=== PATIENT | female | born 1960 | race Caucasian/White ===

== ENCOUNTER 2016-02-16 17:11 | Emergency (ER) | payer MEDICARE, MEDICAID ==
[2016-02-16] MEDS ORDERED: DIPHENHYDRAMINE 50 MG/ML VIAL ONE (19:33)
[2016-02-16] MEDS ORDERED: ONDANSETRON 4 MG VIAL ONE (19:33)
[2016-02-16] MEDS ORDERED: LORAZEPAM 2 MG/ML VIAL ONE (19:34)
[2016-02-16] MEDS ORDERED: FAMOTIDINE 20 MG INJ ONE (19:34)
[2016-02-16] MEDS ORDERED: SODIUM CHLORIDE 0.9% 1,000 ML ONE (19:34)
== END 2016-02-16 22:40 | disposition home or self-care (01) ==
LOC: ER 17:11
CPT/HCPCS: 74022 ×2; 96361 ×2; 96374 ×2; 96375 ×2; 99284; J2405

== ENCOUNTER 2016-02-17 22:08 | Emergency (ER) | payer MEDICARE, MEDICAID ==
[2016-02-18] MEDS ORDERED: ALU/MAG/SIM 30 ML UDC ONE (00:42)
[2016-02-18] MEDS ORDERED: LIDOCAINE 2% VISC 15 ML UDC ONE (00:42)
[2016-02-18] MEDS ORDERED: CLINDAMYCIN 300 MG CAP PO ONE (01:05)
[2016-02-18] MEDS ORDERED: PANTOPRAZOLE 40 MG TAB PO ONE (01:59)
== END 2016-02-18 02:51 | disposition home or self-care (01) ==
LOC: ER 22:08
CPT/HCPCS: 36415; 80053; 81001; 83690; 84703; 85025

== ENCOUNTER 2016-03-12 12:40 | Emergency (ER) | payer MEDICARE, MEDICAID ==
[2016-03-12] MEDS ORDERED: OPTIRAY 350 100 ML VIAL HMH IV ONE (12:41)
[2016-03-12] MEDS ORDERED: LIDOCAINE 2% VISC 15 ML UDC ONE (13:58)
[2016-03-12] MEDS ORDERED: ALU/MAG/SIM 30 ML UDC ONE (13:58)
[2016-03-12] MEDS ORDERED: ONDANSETRON 4 MG VIAL ONE (15:44)
[2016-03-12] MEDS ORDERED: SODIUM CHLORIDE 0.9% 1,000 ML ONE (15:44)
[2016-03-12] MEDS ORDERED: MORPHINE 4 MG/ML SYR ONE (15:44)
[2016-03-12] MEDS ORDERED: FAMOTIDINE 20 MG INJ ONE (15:58)
[2016-03-12] MEDS ORDERED: SODIUM CHLORIDE 0.9% 100 ML IV ONE (16:09)
[2016-03-12] MEDS ORDERED: LORAZEPAM 2 MG/ML VIAL ONE (17:16)
== END 2016-03-12 19:48 | disposition home or self-care (01) ==
LOC: ER 12:40
DX: R10.84 Generalized abdominal pain (principal); R11.2 Nausea with vomiting, unspecified; R06.00 Dyspnea, unspecified; J01.00 Acute maxillary sinusitis, unspecified; J44.9 Chronic obstructive pulmonary disease, unspecified; Z87.891 Personal history of nicotine dependence
CPT/HCPCS: 36415; 36600; 71020; 74177; 80053; 81001; 82553; 82803; 83690; 84484; 85025; 87088; 96361; 96374; 96375; 99284; J2270; J2405; J7050; Q9967